=== PATIENT | male | born 1945 | race Caucasian/White ===

== ENCOUNTER 2017-06-11 06:16 | Day surgery (SDC) | payer MEDICARE, OTHER ==
[~2017-06-11] VITALS: Ht 175.3 cm; Wt 90.3 kg
--- NOTE | ~2017-06-11 | OP ---
Record Of Operation [facility] [address] [place]. [address] NAME: JEZ ALVES : 47 STATUS : [facility]#: [id number] AGE: 71 ADM/REG DATE : 06/11/17 MR#: [id number] REPORT SERV DATE: 06/11/17 DICTATED BY: SCOTT SIERRA DATE: 06/11/17 REPORT STATUS : Draft TRANSCRIBED BY: AILYN DATE: 06/11/17 DATE OF PROCEDURE: 06/11/2017 SERVICE: Otolaryngology. PREOPERATIVE DIAGNOSIS: Chronic left maxillary sinusitis. POSTOPERATIVE DIAGNOSIS: Chronic left maxillary sinusitis. PROCEDURE: Left endoscopic maxillary antrostomy with removal of contents. ANESTHESIA: General endotracheal anesthesia. COMPLICATIONS: None. SPECIMENS: Left maxillary sinus contents. FINDINGS: The patient had a fungal ball in the left maxillary sinus. Using angled scopes, it was completely removed. I Hydrodebrided the sinus with 1 L of saline. STATEMENT OF MEDICAL NECESSITY: This is a 71-year-old male with history of left-sided sinus symptoms. CT scan corroborated an impacted and completely opacified left sinus. The patient had history of left-sided facial fractures in the past. I treated him with two weeks of antibiotics prior to the CT scan before surgery and there was no real improvement in his scan or symptoms, so I recommended the above procedure. On the scan, there was evidence of heterogeneous material consistent with fungal ball. STATEMENT OF OPERATION: The patient was brought to the operating room in supine position and transferred over to the operating table. All pressure points were padded and general endotracheal anesthesia was established. Both sides of the nose were packed with 4% cocaine soaked pledgets. The patient was then draped out for sinus surgery. The pledgets were removed. Afrin-soaked pledgets were then placed into the left side of the nose and allowed to work. They were removed. The patient had a fairly narrow nasal cavity. I used a pediatric 0 and 30-degree scope to gain access. I was able to identify the uncinate process easily. I gently medialized the middle turbinate with a Boaz elevator. Then, I used the hooked end of a frontal sinus probe and grasped the uncinate process and pulled it forward finding the natural ostium of the maxillary sinus. Then, using a pediatric backbiting forceps, I made a large antrostomy in the maxillary sinus. I removed the uncinate process using a microdebrider. I made a wide maxillary antrostomy removing the soft bone anterior to the natural ostium. I then used an angled scope and a RedBee Hydrodebrider. I used 1 L of saline and Hydrodebrided out of the sinus. In that process, I was able to remove fungal ball. I was able to verify the fungal ball and it was completely removed using angled scopes. At this point, I used Stammberger Sinu-Foam in the sinus and this completed the case. The patient was turned back over to Anesthesia where he awoke, was extubated, and transferred to the PACU in stable condition. Record Of Operation [address] [place]. [address] NAME: JEZ ALVES : 47 STATUS : [facility] PAT#: [id number] AGE: 71 ADM/REG DATE : 06/11/17 MR#: [id number] REPORT SERV DATE: 06/11/17 DICTATED BY: SCOTT SIERRA DATE: 06/11/17 REPORT STATUS : Draft TRANSCRIBED BY: AILYN DATE: 06/11/17 PS/AILYN Scott Sierra MD / [id number] CC: MD Caryn Da Silva M.D.
[~2017-06-11 06:16] MED LIST: ASAB PO; COREG12 PO; FLOMAX4 PO; FLOVENT220 INH; LIPITOR20 PO; PRILOSEC40 MG PO; PRIN10 PO; PROAIR HFA INH; RANITIDINE300 MG PO; STIOLTO RESPIMAT4 GM INH
[2017-06-11 06:51] LABS: BASOPHILS 0.9 %; BASOPHILS ABSOLUTE 0.05 10/3/uL (0.0-0.16); EOSINOPHILS 4.7 %; EOSINOPHILS ABSOLUTE 0.27 10/3/uL (0.0-0.53); HEMATOCRIT 44.6 % (40.0-51.0); HEMOGLOBIN 15.4 g/dL (13.6-17.8); IMMATURE GRANULOCYTES 0.2 %; IMMATURE GRANULOCYTES ABSOLUTE 0.01 10/3/uL (0.0-0.11); LYMPHOCYTES 29.5 %; LYMPHOCYTES ABSOLUTE 1.68 10/3/uL (0.67-4.30); MEAN CORPUS HGB CONC 34.5 g/dL (32.0-36.0); MEAN CORPUSCULAR HEMOGLOB 32.1 pg (26.0-34.0); MEAN CORPUSCULAR VOLUME 92.9 fL (80-100); MEAN PLATELET VOLUME 11.1 fL (9.2-13.0); MONOCYTES 10.7 %; MONOCYTES ABSOLUTE 0.61 10/3/uL (0.21-1.20); NEUTROPHILS ABSOLUTE 3.08 10/3/uL (2.02-8.40); PLATELET COUNT 125 10/3/uL (150-400); RBC DISTRIBUTION WIDTH 13.8 % (12.0-16.0); WHITE BLOOD CELLS 5.7 10/3/uL (4.5-10.5)
[2017-06-11 06:52] LABS: MANUAL DIFF NO %
[2017-06-11 07:07] LABS: CALCIUM, SERUM 9.1 MG/DL (8.5-10.4); CHLORIDE, SERUM 107 MMOL/L (96-112); CO2 (CARBON DIOXIDE) 27 MMOL/L (24-34); GFR AFRICAN AMERICAN 71 ML/MIN (>=60); GFR NON AFRICAN AMERICAN 61 ML/MIN (>=60); GLUCOSE, SERUM 91 MG/DL (60-99); POTASSIUM, SERUM 3.7 MMOL/L (3.5-5.3); SODIUM, SERUM 143 MMOL/L (135-148)
[2017-06-11 07:08] LABS: BUN (BLOOD UREA NITROGEN) 20 MG/DL (6-23)
== END 2017-06-11 10:16 | disposition home or self-care (01) ==
LOC: SDC 06:16
PROVIDERS: Otolaryngology
PROC: 099R4ZZ Drainage of Left Maxillary Sinus, Percutaneous Endoscopic Approach (ICD-10-PCS; principal; 2017-06-11 07:15)
DX: J32.0 Chronic maxillary sinusitis (principal); K21.9 Gastro-esophageal reflux disease without esophagitis; E78.00 Pure hypercholesterolemia, unspecified; I25.2 Old myocardial infarction; I25.10 Atherosclerotic heart disease of native coronary artery without angina pectoris; J44.9 Chronic obstructive pulmonary disease, unspecified; F41.9 Anxiety disorder, unspecified; F32.9 Major depressive disorder, single episode, unspecified; G47.33 Obstructive sleep apnea (adult) (pediatric); Z99.89 Dependence on other enabling machines and devices; Z87.891 Personal history of nicotine dependence; Z98.41 Cataract extraction status, right eye; Z98.42 Cataract extraction status, left eye
CPT/HCPCS: 80048; 85025; 88305; 93005; A9270-GY; J2250; J2405; J2710; J3010